=== PATIENT | female | born 1965 | race Caucasian/White ===

== ENCOUNTER → 2016-11-16 | Outpatient (CLI) | payer OTHER ==
[~2016-11-16] MED LIST: BENADRYL25 M2 PO; LEXAPRO 5MG5 MG PO; MEDROL 4MG DOSPA4 MG PO; NEXIUM 20MG20 MG PO; ZANTAC 150MG T150 MG PO; ZYRTEC 10MG10 MG PO
== END ==
LOC: MC.RAD 10:34
DX: Z12.31 Encounter for screening mammogram for malignant neoplasm of breast (principal)

== ENCOUNTER 2017-04-19 16:00 | Outpatient (RCR) | payer BC | END 2017-05-03 | disposition home or self-care (01) | LOC: WSOT | DX: Z47.1 Aftercare following joint replacement surgery (principal); Z96.692 Finger-joint replacement of left hand ==